=== PATIENT | female | born 1965 | race American Indian/Alaskan Native ===

== ENCOUNTER 2017-09-17 15:46 | Inpatient (IN) | payer OTHER ==
[2017-09-17] MEDS ORDERED: ASPIRIN PO ONE (20:16)
[2017-09-17 21:03] LABS: BUN/Creatinine Ratio 15; Blood Urea Nitrogen 9 mg/dL (7-17); Calcium 8.9 mg/dL (8.4-10.2); Hemolysis Index 16
[2017-09-17 21:05] LABS: Basophils # (Auto) 0.1 K/mm3 (0.0-0.1); Basophils % (Auto) 1.2 % (0.0-1.8); Eosinophils # (Auto) 0.2 K/mm3 (0.0-0.4); Eosinophils % (Auto) 2.5 % (0.0-4.3); Hematocrit 41.3 % (30.3-42.9); Hemoglobin 13.8 gm/dl (10.1-14.3); Lymphocytes # (Auto) 4.1 K/mm3 (1.2-5.4); Lymphocytes % (Auto) 41.2 % (13.4-35.0); Mean Corpuscular HGB Conc 34 % (30-34); Mean Corpuscular Hemoglobin 32 pg (28-32); Mean Corpuscular Volume 96 fl (79-97); Monocytes # (Auto) 0.9 K/mm3 (0.0-0.8); Monocytes % (Auto) 9.1 % (0.0-7.3); Platelet Count 217 K/mm3 (140-440); Red Blood Count 4.32 M/mm3 (3.65-5.03); Red Cell Distribution Width 13.3 % (13.2-15.2)
[2017-09-17] MEDS ORDERED: SUBLIMAZE IV ONE (22:06)
[2017-09-17] MEDS ORDERED: ZOFRAN IV ONE (22:06)
[2017-09-17] MEDS ORDERED: BABY ASPIRIN PO ONE (22:07)
--- NOTE | 2017-09-17 22:07 | Emergency Department Report ---
HPI - General Chief Complaint: Chest Pain Time Seen by Provider: 09/17/17 21:33 - HPI HPI: The patient is a 52-year-old female with a history of hypertension, who presents for evaluation of chest pain. The patient reports midsternal pressure like chest pain for the past 2 days, constant since onset, currently 10/10 in severity. The patient denies fever, neck pain, parasthesias, dyspnea, cough, hemoptysis, palpitations, dizziness, syncope, unilateral leg swelling, calf muscle pain. Patient also denies cocaine or other stimulant use, history of DVT or PE, recent immobilization, or history of cancer. ED Past Medical Hx - Past Medical History Hx Hypertension: Yes (no meds) Hx Heart Attack/AMI: No Hx Congestive Heart Failure: No Hx Diabetes: No Hx Deep Vein Thrombosis: No Hx Pulmonary Embolism: No Hx GERD: Yes Hx Liver Disease: No Hx Renal Disease: No Hx Sickle Cell Disease: No Hx Arthritis: No Hx Headaches / Migraines: No Hx Seizures: No Hx Kidney Stones: No Hx Asthma: No Hx COPD: No Hx Tuberculosis: No Hx Dementia: No Hx HIV: No Additional medical history: Esophageal dilatation for esophageal stenosis - Surgical History Hx Coronary Stent: No Hx Open Heart Surgery: No Hx Pacemaker: No Hx Internal Defibrillator: No Hx Cholecystectomy: No Hx Appendectomy: Yes Hx Breast Surgery: Yes (cyst x 3) Additional Surgical History: tonsilectomy - Social History Smoking Status: Current Every Day Smoker Substance Use Type: Alcohol - Medications Home Medications: Home Medications Medication Instructions Recorded Confirmed Last Taken Type Acetaminophen/Codeine [Tylenol #3] 1 tab PO Q6H PRN #10 tab 04/29/16 Unknown Rx Cephalexin [Keflex] 500 mg PO QID #20 capsule 04/29/16 Unknown Rx ED Review of Systems ROS: Stated complaint: CP Other details as noted in HPI Constitutional: denies: fever ENT: denies: throat or neck pain Respiratory: denies: cough, shortness of breath Cardiovascular: reports chest pain Endocrine: denies unexplained weight loss or gain Gastrointestinal: denies: abdominal pain, nausea Genitourinary: denies: dysuria Musculoskeletal: denies: leg swelling Skin: denies: rash Neurological: denies: headache Hematological/Lymphatic: denies: easy bleeding or easy bruising Psych: denies sadness or hopelessness \ Physical Exam - Physical Exam Vital Signs: Vital Signs 09/17/17 09/17/17 16:06 21:47 Temperature 98.6 F Pulse Rate 84 90 Respiratory 18 Rate Blood Pressure 129/76 Blood Pressure 129/76 [Right] O2 Sat by Pulse 99 Oximetry Physical Exam: General: well-nourished, well-developed, no acute distress Head: Normocephalic, atraumatic Eyes: normal sclera ENT: Mucous membranes are pink and moist Neck: trachea midline, neck supple, No neck stiffness, no cervical adenopathy Respiratory: Breath sounds equal bilaterally, no wheezing, rales, or rhonchi Cardio: S1 and S2 present, no murmurs, rubs, gallops, capillary refill is brisk Abdomen: Normoactive bowel sounds, soft abdomen, no rigidity, no guarding or rebound tenderness Chest WALL/Back: No tenderness to palpation of the chest wall, no CVA tenderness with percussion Musc: No pitting edema Skin: No rash Neuro: no facial drooping, normal speech Psych: Normal affect ED Course Vital Signs 09/17/17 09/17/17 16:06 21:47 Temperature 98.6 F Pulse Rate 84 90 Respiratory 18 Rate Blood Pressure 129/76 Blood Pressure 129/76 [Right] O2 Sat by Pulse 99 Oximetry ED Medical Decision Making - Lab Data Result diagrams: 09/17/17 20:25 09/17/17 20:25 - Medical Decision Making The patient was seen and examined by myself. The patient is placed on a seasonal clerk and continuous pulse ox. On initial evaluation, the patient was found to be in no distress. EKG was negative for findings suggestive of acute cardiac infarct. The patient is given IV analgesia for her pain. Chest x-ray is negative for pneumothorax, focal consolidation, pulmonary vascular congestion, pleural effusion, or other obvious acute cardiopulmonary disease process. Lab results were non-revealing including negative troponin, WBC, hemoglobin, hematocrit, electrolytes, renal function. The patient was reevaluated and reported that their symptoms were improved. As the patient has chest pain and risk factors for development of acute coronary event, the patient will be admitted for close cardiopulmonary monitoring, serial troponins, and evaluation by cardiology. The physician on-call was contacted. They presented to the emergency department and evaluated the patient. They agreed to admit the patient. The ED admit order was placed. The patient was admitted in guarded condition. Critical care attestation.: If time is entered above; I have spent that time in minutes in the direct care of this critically ill patient, excluding procedure time. ED Disposition Clinical Impression: Acute chest pain Disposition: OP ADMIT IP TO THIS HOSP Is pt being admited?: Yes Does the pt Need Aspirin: Yes Condition: Fair Instructions: Chest Pain (ED) Referrals: PRIMARY CARE, [Primary Care Provider] - 3-5 Days Time of Disposition: 22:07
--- NOTE | 2017-09-17 22:59 | XRay Report ---
FINAL REPORT EXAM: XR CHEST 1V AP HISTORY: chest pain TECHNIQUE: upright single view chest PRIORS: None. FINDINGS: Cardiac and mediastinal contours are unremarkable. No focal pulmonary infiltrate is identified. No pleural fluid collection seen. Pulmonary vasculature is unremarkable. IMPRESSION: Negative single-view chest
--- NOTE | 2017-09-17 23:52 | History and Physical Report ---
History of Present Illness Date of examination: 09/17/17 History of present illness: 52-year-old lady with a history of no medical problem comes emergency room with complaints of epigastric chest pain. She describes it as dull, sharp sensation that started 3 days ago. The pain has constant intensity 6/10, no radiation, worse with breathing, better with morphine . Admits to nausea, vomiting, no shortness breath diaphoresis or palpitation. Review Of Systems: Constitutional: no weight loss Ears, eyes, nose, mouth and throat: no nasal congestion, no nasal discharge, no sinus pressure, blurry vision, diplopia Neck: No neck pain or rigidity. Cardiovascular: No palpitations Respiratory: No shortness of breath, cough Gastrointestinal: No abdominal pain, hematochezia Genitourinary : no dysuria, frequency , hematuria Musculoskeletal: no muscle ache Integumentary: no rash, no pruritis Neurological: no parathesias, focal weakness Endocrine: no cold or heat intolerance, no polyuria or polydipsia Hematologic/Lymphatic: no easy bruising, no easy bleeding, no gland swelling Allergic/Immunologic: no urticaria, no angioedema. PAST MEDICAL HISTORY: None PAST SURGICAL HISTORY: None FAMILY HISTORY: Hypertension SOCIAL HISTORY: Denies alcohol, tobacco, drugs Medications and Allergies Allergies Allergy/AdvReac Type Severity Reaction Status Date / Time No Known Allergies Allergy Verified 01/14/14 17:52 Home Medications Medication Instructions Recorded Confirmed Last Taken Type Acetaminophen/Codeine [Tylenol #3] 1 tab PO Q6H PRN #10 tab 04/29/16 Unknown Rx Cephalexin [Keflex] 500 mg PO QID #20 capsule 04/29/16 Unknown Rx Exam - Physical Exam Narrative exam: Gen. appearance: Patient lying in bed in no acute distress HEENT: Normocephalic/atraumatic, pupils equal round reactive to light, extra occular movement intact, no scleral icterus, no JVD or thyromegaly or nodule, neck is supple, mucous membrane moist, no erythema or exudate Heart: S1-S2, regular rate and rhythm Lungs: Clear to auscultation bilateral breathing comfortable Abdomen: Positive bowel sounds, nontender, nondistended, no organomegaly Extremities: No edema, cyanosis, clubbing Neuro:: Oriented 3 , cranial nerves II-12 intact, speech, motor intact Skin: No rash, nodules, warm dry - Constitutional Vitals: Temp Pulse Resp BP Pulse Ox 98.6 F 69 14 129/76 99 09/17/17 22:15 09/17/17 22:15 09/17/17 22:15 09/17/17 22:15 09/17/17 22:15 Results - Labs CBC & Chem 7: 09/17/17 20:25 09/17/17 20:25 Labs: Abnormal lab results 09/17/17 09/17/17 Range/Units 20:25 20:25 Lymph % (Auto) 41.2 H (13.4-35.0) % [place] % (Auto) 9.1 H (0.0-7.3) % [place]y # 0.9 H (0.0-0.8) K/mm3 Creatinine 0.6 L (0.7-1.2) mg/dL - Imaging and Cardiology EKG: image reviewed Chest x-ray: image reviewed Assessment and Plan Assessment Atypical chest pain Plan Admit to medicine Check cardiac enzymes, d-dimer, stress test IV morphine, aspirin, DVT prophylaxis
[2017-09-18] MEDS ORDERED: LOVENOX SUB-Q ONE (00:16)
[2017-09-18] MEDS ORDERED: REGLAN IV PRN (01:03)
[2017-09-18] MEDS ORDERED: TYLENOL PO PRN (01:03)
[2017-09-18] MEDS ORDERED: DULCOLAX PR PRN (01:03)
[2017-09-18] MEDS ORDERED: MILK OF MAGNESIA PO PRN (01:03)
[2017-09-18] MEDS: MORPHINE IV PRN ×2 (01:15→06:12)
[2017-09-18] MEDS: ZOFRAN IV PRN ×2 (06:10→19:39)
[2017-09-18] MEDS ORDERED: LEXISCAN IV ONE ×2 (08:00→08:08)
[2017-09-18] MEDS ORDERED: LOVENOX SUB-Q SCH (10:00)
--- NOTE | 2017-09-18 11:52 | Discharge Summary ---
Providers - Providers Date of Admission: 09/17/17 23:51 Date of discharge: 09/18/17 Attending physician: YURI DORMAN Primary care physician: LIFE TEACHER Hospitalization Condition: Fair Hospital course: Discharge diagnosis: Atypical chest pain, likely GERD - negative, CE, negative stress test Dysphagia - Normal TSH and T4 - kept on NPO and D5NS - barium swallow normal, discussed with GI recommended outpt follow up - resumed diet GERD, started on PPI Dvt Px, Lovenox Disposition: DC- TO HOME OR SELFCARE Time spent for discharge: 32 minutes Exam - Constitutional Vitals: Temp Pulse Resp BP Pulse Ox 98.6 F 80 18 127/77 99 09/18/17 00:45 09/18/17 10:05 09/18/17 06:12 09/18/17 10:05 09/18/17 00:45 General appearance: Present: no acute distress, well-nourished - EENT Eyes: Present: PERRL ENT: hearing intact, clear oral mucosa - Neck Neck: Present: supple, normal ROM - Respiratory Respiratory effort: normal Respiratory: bilateral: CTA - Cardiovascular Heart Sounds: Present: S1 & S2. Absent: rub, click - Extremities Extremities: pulses symmetrical, No edema Peripheral Pulses: within normal limits - Abdominal General gastrointestinal: Present: soft, non-tender, non-distended, normal bowel sounds - Integumentary Integumentary: Present: clear, warm, dry - Musculoskeletal Musculoskeletal: gait normal, strength equal bilaterally - Psychiatric Psychiatric: appropriate mood/affect, intact judgment & insight - Neurologic Neurologic: CNII-XII intact, moves all extremities Plan Activity: advance as tolerated Weight Bearing Status: Weight Bear as Tolerated Diet: low fat, low salt Additional Instructions: F/u with dr. Stevens for outpt EGD Follow up with: REGAN STEVENS MD [Staff Physician] - 7 Days PRIMARY CARE, [Primary Care Provider] - 3-5 Days Prescriptions: Gabapentin [Neurontin] 100 mg PO Q8HR #60 capsule Pantoprazole [Protonix TAB] 40 mg PO QDAY #30 tablet
[2017-09-18] MEDS ORDERED: PROTONIX PO SCH (12:00)
[2017-09-18] MEDS ORDERED: TYLENOL #3 PO PRN (19:06)
[2017-09-18] MEDS ORDERED: NITROSTAT SL PRN (19:09)
[2017-09-18] MEDS: D5NS 1,000 ML IV SCH (19:39)
[2017-09-19] MEDS: TORADOL IV SCH ×2 (01:09→06:12)
--- NOTE | 2017-09-19 01:55 | Treadmill Report ---
PROCEDURE: Nuclear perfusion cardiology stress test. REASON FOR STRESS TEST: Chest pain. IMAGING PROTOCOL: The patient received 10 mCi of Technetium 99m Tetrofosmin for resting image and 28 mCi of Technetium 99m Tetrofosmin for stress imaging. The imaging for the whole procedure was completed 30-90 minutes following the initial injection of Technetium 99m Tetrofosmin. The SPECT imaging in the 180 degree arc was performed in the right anterior oblique projection. Computerized reconstruction of the images was performed for analysis. IMAGING RESULTS: Normal cavity size from stress to rest. Normal distribution of radionuclide in the anterior, inferior, septal, and apical regions. Gated SPECT, EF of 65% with no wall motion abnormality. The patient infused Lexiscan with no EKG changes. SUMMARY: 1. Negative Lexiscan EKG. 2. Normal rest and stress myocardial perfusion scan. No significant stress ischemia. No wall motion abnormality. Gated SPECT, EF 65%. JOB# [id number] JULIANN/LOY
[2017-09-19] MEDS: ZOFRAN IV PRN (06:13)
[2017-09-19] MEDS: D5NS 1,000 ML IV SCH (06:18)
[2017-09-19 06:54] LABS: Basophils # (Auto) 0.1 K/mm3 (0.0-0.1); Basophils % (Auto) 1.1 % (0.0-1.8); Eosinophils # (Auto) 0.2 K/mm3 (0.0-0.4); Eosinophils % (Auto) 3.9 % (0.0-4.3); Hematocrit 40.7 % (30.3-42.9); Hemoglobin 13.3 gm/dl (10.1-14.3); Lymphocytes # (Auto) 2.8 K/mm3 (1.2-5.4); Lymphocytes % (Auto) 47.8 % (13.4-35.0); Mean Corpuscular HGB Conc 33 % (30-34); Mean Corpuscular Hemoglobin 31 pg (28-32); Mean Corpuscular Volume 95 fl (79-97); Monocytes # (Auto) 0.6 K/mm3 (0.0-0.8); Monocytes % (Auto) 9.9 % (0.0-7.3); Red Blood Count 4.28 M/mm3 (3.65-5.03); Red Cell Distribution Width 12.8 % (13.2-15.2)
[2017-09-19 07:03] LABS: Platelet Count 209 K/mm3 (140-440)
[2017-09-19 07:15] LABS: BUN/Creatinine Ratio 13; Blood Urea Nitrogen 8 mg/dL (7-17); Calcium 8.4 mg/dL (8.4-10.2); Hemolysis Index 4
[2017-09-19 09:51] VITALS: BP 114/67
[2017-09-19] MEDS ORDERED: PROTONIX PO SCH (10:00)
[2017-09-19] MEDS ORDERED: PROTONIX IV SCH (10:00)
--- NOTE | 2017-09-19 11:01 | Fluoroscopy Report ---
ESOPHAGRAM: 09/19/17 CLINICAL: Dysphagia. Balloon dilatation of the esophagus eight years ago. FINDINGS: Single and double contrast barium examinations were performed with the patient standing upright and in the prone oblique position. Normal swallowing mechanism was observed. Normal esophageal peristalsis and normal primary stripping wave. The esophagus failed to distend optimally for evaluation of the mucosa and secretions in the esophagus also inhibited coating of the esophagus. No mass, ulcer or stricture identified. Despite this normal appearance of the esophagus, the patient complained of a sensation of pain with something sticking in the midportion of her chest during the examination. A 10-mm barium tablet was given and passed promptly into the stomach. No gastroesophageal reflux was observed with the patient in multiple positions and after a water siphon test. IMPRESSION: Normal study.
--- NOTE | 2017-09-19 11:59 | Progress Note ---
Assessment and Plan Atypical chest pain, likely GERD - negative, CE, negative stress test Dysphagia - Normal TSH and T4 - place on NPO, cont D5NS - barium swallow tomorrow, consulted GI GERD, started on PPI Dvt Px, Lovenox Subjective Date of service: 09/18/17 Interval history: Pt seen and examined she was planned for discharge after negative stress test but stated that she is having choking while trying to swallow food. She fear that she will chock to if gets discharge without any follow up Discussed with Dr. Stevens, plan for barium swallow tomorrow Objective - Constitutional Vitals: Vital Signs - 12hr 09/19/17 09/19/17 09/19/17 00:33 01:09 05:38 Temperature 98.0 F 98.2 F Pulse Rate 79 70 Respiratory 20 18 20 Rate Blood Pressure 132/94 133/80 Blood Pressure [Right] O2 Sat by Pulse 99 98 Oximetry 09/19/17 09/19/17 06:12 09:50 Temperature 98.2 F Pulse Rate 71 Respiratory 18 18 Rate Blood Pressure Blood Pressure 114/67 [Right] O2 Sat by Pulse 98 Oximetry General appearance: Present: no acute distress, well-nourished - EENT Eyes: PERRL, EOM intact ENT: hearing intact, clear oral mucosa Ears: bilateral: normal - Neck Neck: supple, normal ROM - Respiratory Respiratory effort: normal Respiratory: bilateral: CTA - Cardiovascular Rhythm: regular Heart Sounds: Present: S1 & S2. Absent: gallop, rub Extremities: pulses intact, No edema, normal color, Full ROM - Gastrointestinal General gastrointestinal: Present: soft, non-tender, non-distended, normal bowel sounds - Integumentary Integumentary: clear, warm, dry - Musculoskeletal Musculoskeletal: 1, strength equal bilaterally - Neurologic Neurologic: moves all extremities - Psychiatric Psychiatric: memory intact, appropriate mood/affect, intact judgment & insight - Labs CBC & Chem 7: 09/19/17 05:40 09/19/17 05:40 Labs: Abnormal lab results 09/19/17 09/19/17 Range/Units 05:40 05:40 RDW 12.8 L (13.2-15.2) % Lymph % (Auto) 47.8 H (13.4-35.0) % [place] % (Auto) 9.9 H (0.0-7.3) % Seg Neutrophils % 37.3 L (40.0-70.0) % Creatinine 0.6 L (0.7-1.2) mg/dL Glucose 112 H (65-100) mg/dL - Imaging and cardiology EKG: report reviewed Chest x-ray: report reviewed Other: report reviewed (Stress test negative)
[2017-09-19] MEDS ORDERED: Fluarix Quad 2017-2018(36 MOS+ IM ONE (12:00)
== END 2017-09-19 15:23 | disposition home or self-care (01) | DRG 392 ==
LOC: ED 15:46 → 4A 23:51
PROVIDERS: ADMIT Internal Medicine; ATTEND Internal Medicine
PROC: 3E0234Z Introduction of Serum, Toxoid and Vaccine into Muscle, Percutaneous Approach (ICD-10-PCS; principal; 2017-09-19)
DX: K21.9 Gastro-esophageal reflux disease without esophagitis (principal); R13.10 Dysphagia, unspecified; I10 Essential (primary) hypertension; R07.9 Chest pain, unspecified; F17.200 Nicotine dependence, unspecified, uncomplicated; Z90.49 Acquired absence of other specified parts of digestive tract; Z79.899 Other long term (current) drug therapy; Z82.49 Family history of ischemic heart disease and other diseases of the circulatory system; Z23 Encounter for immunization
CPT/HCPCS: 36415; 71045; 74220; 78452; 80048; 82550; 82553; 84439; 84443; 84484; 85025; 85379; 90686; 93005; 93010; 93017; A9502; J1650; J1885; J2270; J2405; J2785; J3010; J7042

== ENCOUNTER 2021-01-30 14:48 | Emergency (ER) | payer SELFPAY ==
[2021-01-30] MEDS ORDERED: NEOMY 3.5 MG/BACIT 400 UNITS/POLY B 5000 UNITS/GM OINT PACKET TP ONE (15:08)
[2021-01-30] MEDS ORDERED: SODIUM CHLORIDE 0.9% IRR 500 ML BOTTLE IR ONE (15:08)
[2021-01-30] MEDS ORDERED: TETANUS,DIPH,PERTUSS(ACELL) VACCINE 0.5 ML SYRINGE IM ONE (15:08)
--- NOTE | 2021-01-30 15:09 | Event Note ---
ED Screening Note ED Screening Note: slammed left 5th digit in car door needs tdap This initial assessment/diagnostic orders/clinical plan/treatment(s) is/are subject to change based on patients health status, clinical progression and re- assessment by fellow clinical providers in the ED. Further treatment and workup at subsequent clinical providers discretion. Patient/guardian urged not to elope from the ED as their condition may be serious if not clinically assessed and managed. Initial orders include: xr wound care
--- NOTE | 2021-01-30 15:49 | XRay Report ---
LEFT LITTLE FINGER 3 VIEWS INDICATION / CLINICAL INFORMATION: Left little finger pain/injury. Finger slammed in a door last night. COMPARISON: None available. FINDINGS: BONES and JOINT(S): No acute fracture or subluxation. No significant arthritis. SOFT TISSUES: There is mild edema along the left little finger without other significant abnormalitie s. ADDITIONAL FINDINGS: None. IMPRESSION: Mild left little finger edema without an acute osseous abnormality. Signer Name: Mariusz Solo MD Signed: 01/30/2021 3:45 PM Workstation Name: [id number]
--- NOTE | 2021-01-30 15:53 | Emergency Department Report ---
ED Laceration HPI - HPI Chief Complaint: Extremity Injury, Upper Stated Complaint: FINGER INJURY Time Seen by Provider: 01/30/21 15:07 Occurred When: Today Location: Upper Extremity Severity: mild Tetanus Status: Not up to Date Laceration Symptoms: Yes Pain, No Foreign Body Sensation, No Numbness, No Weakness Other History: 56 yo comes to er with wound to 5th digit of hand. She reports slamming in door last night. This is an avusion wound. The nail is completly off. No bleeding. Soft tissue swelling noted. Pt is able to bend DIP joint. No subungal hematoma. ED Review of Systems ROS: Stated complaint: FINGER INJURY Other details as noted in HPI Comment: All other systems reviewed and negative ED Past Medical Hx - Past Medical History Previous Medical History?: Yes Hx Hypertension: Yes (no meds) Hx Heart Attack/AMI: No Hx Congestive Heart Failure: No Hx Diabetes: No Hx Deep Vein Thrombosis: No Hx Pulmonary Embolism: No Hx GERD: Yes Hx Liver Disease: No Hx Renal Disease: No Hx Sickle Cell Disease: No Hx Arthritis: No Hx Headaches / Migraines: No Hx Seizures: No Hx Kidney Stones: No Hx Asthma: No Hx COPD: No Hx Tuberculosis: No Hx Dementia: No Hx HIV: No Additional medical history: Esophageal dilatation for esophageal stenosis - Surgical History Past Surgical History?: Yes Hx Coronary Stent: No Hx Open Heart Surgery: No Hx Pacemaker: No Hx Internal Defibrillator: No Hx Cholecystectomy: No Hx Appendectomy: Yes Hx Breast Surgery: Yes (cyst x 3) Additional Surgical History: tonsilectomy - Family History Family history: no significant - Social History Smoking Status: Current Every Day Smoker Substance Use Type: Alcohol - Medications Home Medications: Home Medications Medication Instructions Recorded Confirmed Last Taken Type Acetaminophen/Codeine [Tylenol #3] 1 tab PO Q6H PRN #10 tab 04/29/16 Unknown Rx cephALEXin [Keflex] 500 mg PO QID #20 capsule 04/29/16 Unknown Rx Gabapentin [Neurontin] 100 mg PO Q8HR #60 capsule 09/19/17 Unknown Rx Ondansetron [Zofran Odt] 4 mg PO Q6HR PRN #20 tab.rapdis 03/14/20 Unknown Rx Pantoprazole [Protonix TAB] 40 mg PO BID 15 Days #30 tablet 03/14/20 Unknown Rx cephALEXin [Keflex] 500 mg PO Q12HR #20 cap 01/30/21 Unknown Rx Laceration Physical Exam - Exam General: Vital signs noted. No distress. Alert and acting appropriately. Laceration Location: Upper Extremity Laceration Exam: Yes Normal Distal CMS, No Foreign Body, No Exposed Tendon, Vessel, or Nerve, No Tendon Injury ED Medical Decision Making - Radiology Data Radiology results: report reviewed, image reviewed no fx - Medical Decision Making avulsion wound to finger bleeding controlled no fracture tdap given motrin ordered- pt refused and wanted narcotics; offered tylenol wound care provider. wound dressed. pt educated on wound care. on dc pt has full rom of finger dc home with dc plan of care including wound care. Pt verbalizes understanding of dc plan of care. Vital Signs 01/30/21 01/30/21 16:07 16:18 Respiratory 16 16 Rate vs normal as documented manually by RN - Differential Diagnosis ro fx Critical care attestation.: If time is entered above; I have spent that time in minutes in the direct care of this critically ill patient, excluding procedure time. ED Disposition Clinical Impression: Wound, open, finger, Avulsed fingernail Disposition: DC-01 TO HOME OR SELFCARE Is pt being admited?: No Does the pt Need Aspirin: No Condition: Stable Instructions: Wound Care, Adult Additional Instructions: starting in the AM - take dressing off and wash with soap and water; NO PEROXIDE; then cover with a non adhesive dressing do this twice per day motrin or tylenol for pain elevating and icing will help with comfort the wound will heal from the inside out take antibiotic until gone your tetanus was updated today. no fracture on xray. follow up with pcp for recheck Wednesday referral below Prescriptions: cephALEXin [Keflex] 500 mg PO Q12HR #20 cap Referrals: BUD ACOSTA MD [Staff Physician] - 3-5 Days Time of Disposition: 16:02
[2021-01-30] MEDS ORDERED: IBUPROFEN 800 MG TAB PO ONE (15:54)
[2021-01-30] MEDS ORDERED: ACETAMINOPHEN 500 MG TAB PO ONE (16:08)
== END 2021-01-30 16:30 | disposition home or self-care (01) ==
LOC: ED 14:48
DX: S61.309A Unspecified open wound of unspecified finger with damage to nail, initial encounter (principal); F17.200 Nicotine dependence, unspecified, uncomplicated; Z79.899 Other long term (current) drug therapy; X58.XXXA Exposure to other specified factors, initial encounter; Y93.89 Activity, other specified; Y92.89 Other specified places as the place of occurrence of the external cause; Y99.8 Other external cause status
CPT/HCPCS: 73140; 90471; 90715; 99283; A6250

== ENCOUNTER 2021-12-19 10:25 | Emergency (ER) | payer OTHER ==
[2021-12-19 10:33] VITALS: BP 160/90
[2021-12-19] MEDS ORDERED: ASPIRIN 81 MG TAB CHEW PO ONE (10:38)
[2021-12-19] MEDS ORDERED: ONDANSETRON 4 MG/2 ML INJ IV ONE (10:41)
[2021-12-19] MEDS ORDERED: MORPHINE 4 MG/1 ML INJ IV ONE (10:41)
--- NOTE | 2021-12-19 10:57 | XRay Report ---
CHEST 1 VIEW 12/19/2021 10:41 AM INDICATION / CLINICAL INFORMATION: Chest Pain. COMPARISON: 03/13/2020 FINDINGS: SUPPORT DEVICES: None. HEART / MEDIASTINUM: No significant abnormality. LUNGS / PLEURA: No significant pulmonary or pleural abnormality. No pneumothorax. ADDITIONAL FINDINGS: No significant additional findings. IMPRESSION: 1. No acute findings. Signer Name: Lewis Thurston MD Signed: 12/19/2021 10:53 AM Workstation Name: [employer]
[2021-12-19] MEDS ORDERED: SODIUM CHLORIDE 0.9% 1000 ML 1,000 ML IV ONE (11:04)
[2021-12-19 11:06] LABS: Basophils # (Auto) 0.1 K/mm3 (0.0-0.1); Basophils % (Auto) 0.5 % (0.0-1.8); Eosinophils % (Auto) 0.1 % (0.0-4.3); Hematocrit 44.1 % (30.3-42.9); Hemoglobin 14.5 gm/dl (10.1-14.3); Mean Corpuscular HGB Conc 33 % (30-34); Mean Corpuscular Volume 90 fl (79-97); Monocytes # (Auto) 0.3 K/mm3 (0.0-0.8); Monocytes % (Auto) 2.7 % (0.0-7.3); Platelet Count 280 K/mm3 (140-440); Red Blood Count 4.89 M/mm3 (3.65-5.03); Red Cell Distribution Width 13.2 % (13.2-15.2)
--- NOTE | 2021-12-19 11:07 | Emergency Department Report ---
ED N/V/D HPI - General Chief complaint: Chest Pain Stated complaint: CHEST PAIN Time Seen by Provider: 12/19/21 10:38 Source: patient, EMS Mode of arrival: Stretcher Limitations: No Limitations - History of Present Illness Initial comments: Patient is a 56-year-old female with history of GERD presenting with complaint of severe epigastric pain, nausea and vomiting beginning yesterday. States she has vomited numerous amount of times to the point to where she is experiencing chest pain in the center of her chest. She denies any cardiac history. Denies any fever, chills or sick contacts. - Related Data Previous Rx's Medication Instructions Recorded Last Taken Type Acetaminophen/Codeine [Tylenol #3] 1 tab PO Q6H PRN #10 tab 04/29/16 Unknown Rx cephALEXin [Keflex] 500 mg PO QID #20 capsule 04/29/16 Unknown Rx Gabapentin [Neurontin] 100 mg PO Q8HR #60 capsule 09/19/17 Unknown Rx Ondansetron [Zofran Odt] 4 mg PO Q6HR PRN #20 tab.rapdis 03/14/20 Unknown Rx Pantoprazole [Protonix TAB] 40 mg PO BID 15 Days #30 tablet 03/14/20 Unknown Rx cephALEXin [Keflex] 500 mg PO Q12HR #20 cap 01/30/21 Unknown Rx Promethazine [Phenergan] 25 mg PO Q8HR PRN #14 tab 12/19/21 Unknown Rx Allergies Allergy/AdvReac Type Severity Reaction Status Date / Time No Known Allergies Allergy Verified 12/19/21 10:33 ED Review of Systems ROS: Stated complaint: CHEST PAIN Other details as noted in HPI Comment: All other systems reviewed and negative Constitutional: no symptoms reported Respiratory: no symptoms reported Cardiovascular: chest pain Gastrointestinal: abdominal pain, nausea, vomiting Genitourinary: denies: urgency, dysuria, discharge Musculoskeletal: denies: back pain, joint swelling, arthralgia Skin: denies: rash, lesions Neurological: denies: headache, weakness, paresthesias Psychiatric: denies: anxiety, depression ED Past Medical Hx - Past Medical History Previous Medical History?: Yes Hx Hypertension: Yes (no meds) Hx Heart Attack/AMI: No Hx Congestive Heart Failure: No Hx Diabetes: No Hx Deep Vein Thrombosis: No Hx Pulmonary Embolism: No Hx GERD: Yes Hx Liver Disease: No Hx Renal Disease: No Hx Sickle Cell Disease: No Hx Arthritis: No Hx Headaches / Migraines: No Hx Seizures: No Hx Kidney Stones: No Hx Asthma: No Hx COPD: No Hx Tuberculosis: No Hx Dementia: No Hx HIV: No Additional medical history: Esophageal dilatation for esophageal stenosis - Surgical History Hx Coronary Stent: No Hx Open Heart Surgery: No Hx Pacemaker: No Hx Internal Defibrillator: No Hx Cholecystectomy: No Hx Appendectomy: Yes Hx Breast Surgery: Yes (cyst x 3) Additional Surgical History: tonsilectomy - Social History Smoking Status: Current Every Day Smoker Substance Use Type: Alcohol - Medications Home Medications: Home Medications Medication Instructions Recorded Confirmed Last Taken Type Acetaminophen/Codeine [Tylenol #3] 1 tab PO Q6H PRN #10 tab 04/29/16 Unknown Rx cephALEXin [Keflex] 500 mg PO QID #20 capsule 04/29/16 Unknown Rx Gabapentin [Neurontin] 100 mg PO Q8HR #60 capsule 09/19/17 Unknown Rx Ondansetron [Zofran Odt] 4 mg PO Q6HR PRN #20 tab.rapdis 03/14/20 Unknown Rx Pantoprazole [Protonix TAB] 40 mg PO BID 15 Days #30 tablet 03/14/20 Unknown Rx cephALEXin [Keflex] 500 mg PO Q12HR #20 cap 01/30/21 Unknown Rx Promethazine [Phenergan] 25 mg PO Q8HR PRN #14 tab 12/19/21 Unknown Rx ED Physical Exam - General Limitations: No Limitations - Head Head exam: Present: atraumatic, normocephalic - Eye Eye exam: Present: normal appearance, EOMI. Absent: scleral icterus - Respiratory Respiratory exam: Present: normal lung sounds bilaterally. Absent: respiratory distress - Cardiovascular Cardiovascular Exam: Present: regular rate, normal rhythm. Absent: systolic murmur, diastolic murmur, rubs, gallop - GI/Abdominal GI/Abdominal exam: Present: soft, tenderness (Tenderness in epigastric region and right upper quadrant without rebound or guarding). Absent: mass - Rectal Rectal exam: Present: deferred - Neurological Exam Neurological exam: Present: alert, oriented X3 - Psychiatric Psychiatric exam: Present: normal affect, normal mood - Skin Skin exam: Present: warm, dry, intact, normal color ED Course Vital Signs 12/19/21 10:31 Temperature 98.7 F Pulse Rate 92 H Respiratory 16 Rate Blood Pressure 160/90 [Left] O2 Sat by Pulse 100 Oximetry ED Medical Decision Making - Lab Data Result diagrams: 12/19/21 10:47 12/19/21 10:47 - EKG Data -: EKG Interpreted by Me EKG shows normal: sinus rhythm, intervals, QRS complexes Rate: normal - EKG Data Interpretation: other (Left axis deviation) - Medical Decision Making Patient presenting complaint of nausea vomiting and abdominal pain secondary to repetitive vomiting. Labs reviewed. CBC and CMP grossly unremarkable. No significant electrolyte disturbances. Patient was given 1 L normal saline bolus along with IV Zofran and Reglan. She was given IV morphine and Dilaudid for pain and was also given a GI cocktail. Will discharge home with prescription for Phenergan. Follow-up with PCP as needed. Critical care attestation.: If time is entered above; I have spent that time in minutes in the direct care of this critically ill patient, excluding procedure time. ED Disposition Clinical Impression: Acute gastritis without bleeding, Nausea & vomiting Disposition: 01 HOME / SELF CARE / HOMELESS Is pt being admited?: No Does the pt Need Aspirin: No Condition: Stable Instructions: Gastritis, Adult, Nausea and Vomiting, Adult Time of Disposition: 14:21
[2021-12-19 11:28] LABS: Alanine Aminotransferase 24 units/L (7-56); Albumin 4.7 g/dL (3.9-5); BUN/Creatinine Ratio 24; Blood Urea Nitrogen 12 mg/dL (7-17); Calcium 10.5 mg/dL (8.4-10.2); Hemolysis Index 11
[2021-12-19] MEDS ORDERED: LIDOCAINE VISCOUS 2% 15 ML ORAL LIQD PO ONE (11:44)
[2021-12-19] MEDS ORDERED: ALUM-MAG HYDROXIDE-SIMETHICONE 200-200-20MG/5ML ORAL LIQD 30 ML PO ONE (11:44)
[2021-12-19] MEDS ORDERED: METOCLOPRAMIDE 10 MG/2 ML INJ IV ONE (13:36)
[2021-12-19] MEDS ORDERED: HYDROmorphone 1 MG/1 ML INJ IV ONE (14:10)
== END 2021-12-19 14:55 | disposition home or self-care (01) ==
LOC: ED 10:25
DX: K29.00 Acute gastritis without bleeding (principal); R11.2 Nausea with vomiting, unspecified; F17.200 Nicotine dependence, unspecified, uncomplicated; F10.20 Alcohol dependence, uncomplicated; I10 Essential (primary) hypertension
CPT/HCPCS: 36415; 71045; 80053; 83690; 84484; 85025; 93005; 96361; 96374; 96375; 99284; J1170; J2270; J2405; J2765; J7030